=== PATIENT | male | born 1995 | race Caucasian/White ===

== ENCOUNTER 2023-10-14 14:49 | Emergency (ER) | payer MEDICAID ==
[~2023-10-14] VITALS: Ht 170.2 cm; Wt 72.1 kg
[2023-10-14 15:05] VITALS: BP_SYST 125; PULSE 86; RESP 18; TEMP 98.9; O2SAT 98
[2023-10-14] MEDS ORDERED: IBUP-1969 PO (15:18)
[2023-10-14] MEDS ORDERED: CARB15DR93 LEFT EAR (15:18)
[2023-10-14 15:39] VITALS: BP_SYST 125; PULSE 86; RESP 18; TEMP 98.9; O2SAT 98
== END 2023-10-14 15:24 | disposition home or self-care (01) ==
LOC: SED 14:49
DX: H61.22 Impacted cerumen, left ear (principal)
CPT/HCPCS: 99282